=== PATIENT | male | born 1990 | race Caucasian/White ===

== ENCOUNTER 2021-01-13 02:35 | Emergency (ER) | payer MEDICAID ==
[2021-01-13] MEDS ORDERED: VANCOMYCIN INJ 3 GM in SODIUM CHLORIDE 0.9% 500 ML IV ONE (02:53)
--- NOTE | 2021-01-13 02:56 | ED Physician Documentation ---
History of Present Illness - Stated complaint Stated Complaint: L FINGER PX - Chief complaint Chief Complaint: Ext Problem - History obtained from History obtained from: Patient - Additonal information Additional information: Patient comes emergency department chief complaint of left index finger pain and swelling. He states that he was working on a car yesterday and had a couple of cuts on his index finger distally. He began to notice today that the finger was becoming increasingly swollen and painful and red. No drainage from the cuts. He states that over the course of this night, the pain has become excruciating, and that he has had to soak his finger in ice water just to try to numb it and make the pain manageable. No fevers or chills. He states the pain is confined to the distal half of his finger. He has not noticed any erythematous streaks traveling up his arm. No hand or arm pain. Patient has not really been moving the finger because it hurts too much. He is not a diabetic. No other complaints at this time. Review of Systems Ten Systems: 10 systems reviewed and negative Constitutional: reports: Reviewed and negative Eyes: reports: Reviewed and negative Ears: reports: Reviewed and negative Nose: reports: Reviewed and negative Throat: reports: Reviewed and negative Cardiac: reports: Reviewed and negative Respiratory: reports: Reviewed and negative GI: reports: Reviewed and negative : reports: Reviewed and negative Skin: reports: Other (Redness, left index finger.) Musculoskeletal: reports: Extremity pain, Extremity swelling Neurologic: reports: Reviewed and negative Psychiatric: reports: Reviewed and negative Endocrine: reports: Reviewed and negative Immunocompromised: reports: Reviewed and negative PD PAST MEDICAL HISTORY - Past Medical History Past Medical History: No - Past Surgical History Past Surgical History: No - Present Medications Home Medications: Ambulatory Orders Medication Instructions Recorded Confirmed HYDROcod/ACETAM 5/325 [Dalzell 5/325] 1 - 2 tablet PO Q6H PRN #14 tablet 01/13/21 - Allergies Allergies/Adverse Reactions: Allergies Allergy/AdvReac Type Severity Reaction Status Date / Time No Known Drug Allergies Allergy Verified 08/04/15 09:20 - Social History Does the pt smoke?: Yes Smoking Status: Current every day smoker Does the pt drink ETOH?: No Does the pt have substance abuse?: No - Immunizations Immunizations are current?: No PD ED PE NORMAL - Vitals Vital signs reviewed: Yes - General General: Alert and oriented X 3, Other (Patient is tearful and appears in pain.) - HEENT HEENT: Atraumatic, PERRL, EOMI, Moist mucous membranes - Neck Neck: Supple, no meningeal sign - Cardiac Cardiac: Strong equal pulses - Respiratory Respiratory: No respiratory distress - Derm Derm: Warm and dry, No rash, Other (Mild erythema noted distal half left index finger. No fluctuance or drainage. 3 Superficial lacerations/cracked skin less than 1 cm length each noted over fingertip.) - Extremities Extremities: No deformity, Other (Moderate edema left index finger. Patient refuses any movement secondary to pain. No tenderness along flexor tendon distribution. No swelling or tenderness of the hand. 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, No motor deficit, No sensory deficit, Normal speech, Other (Grossly normal) - Psych Psych: Normal mood, Normal affect Results - Vitals Vitals: Vital Signs - 24 hr 01/13/21 01/13/21 02:44 04:47 Temperature 37.1 C Heart Rate 90 81 Respiratory 18 17 Rate Blood Pressure 137/93 H 132/89 H O2 Saturation 96 98 Oxygen O2 Source Room air Procedures - Regional nerve block Nerve block site: Digital - note digit(s) (L middle finger) Right / left: Left Nerve block anesthesia: Marcaine 0.5% Nerve block aftercare: Excellent anesthesia, Patient tolerated well, No complications PD MEDICAL DECISION MAKING - ED course Complexity details: considered differential, d/w patient, d/w family ED course: The patient did not show signs of flexor tenosynovitis at this time, but I was concerned about the degree of pain the patient was in and the redness and swelling with induration of the finger. I could not feel an obvious purulent collection, but I did feel the patient should have a dose of IV antibiotics. IV vancomycin was ordered for the patient. Who was treated with this as well as IV Dilaudid and Toradol, which did improve his pain but did not completely resolve it, and patient was still in quite a bit of pain. I offer the patient digital block which she did readily accept, and it was done as above. I advised the patient that since admission here or at any other hospital is not an option, due to bed status, we will have him come back to the emergency department in the mid afternoon for recheck of his finger and possibly another dose of IV antibiotics. Patient is agreeable to this plan. Departure - Departure Disposition: 01 Home, Self Care Clinical Impression: Cellulitis of finger of left hand Condition: Stable Instructions: ED Infec Skin Cellulitis Prescriptions: HYDROcod/ACETAM 5/325 [Dalzell 5/325] 1 - 2 tablet PO Q6H PRN #14 tablet PRN Reason: Pain Comments: Please return in the mid to later afternoon for a recheck and further antibiotic dosing.
[2021-01-13] MEDS ORDERED: VANCOMYCIN 1 GM VIAL ONE ×2 (03:03→03:06)
[2021-01-13] MEDS ORDERED: KETOROLAC 30 MG/ML VIAL IVP STA (03:06)
[2021-01-13] MEDS ORDERED: HYDROmorphone 1 MG/ML CARPUJECT IVP STA ×2 (03:06→04:12)
[2021-01-13] MEDS ORDERED: BUPIVACAINE 0.5% PF 30 ML VIAL SUBQ ONE (04:20)
[2021-01-13] MEDS ORDERED: BUPIVACAINE 0.5% PF 10 ML VIAL ONE (04:31)
[2021-01-13 06:13] VITALS: BP 131/62
== END 2021-01-13 06:14 | disposition home or self-care (01) ==
LOC: ED 02:35
DX: S61.211A Laceration without foreign body of left index finger without damage to nail, initial encounter (principal); L03.012 Cellulitis of left finger; W45.8XXA Other foreign body or object entering through skin, initial encounter; Y93.89 Activity, other specified; F17.200 Nicotine dependence, unspecified, uncomplicated
CPT/HCPCS: 64450; 96365; 96366; 96375; 96376; 99283; 99284; J1170; J3370

== ENCOUNTER 2021-01-13 15:09 | Emergency (ER) | payer MEDICAID ==
[2021-01-13 15:17] VITALS: BP 129/69
== END 2021-01-13 15:40 | disposition left against medical advice (07) ==
LOC: ED 15:09
DX: Z53.21 Procedure and treatment not carried out due to patient leaving prior to being seen by health care provider (principal)

== ENCOUNTER 2021-07-31 05:51 | Emergency (ER) | payer MEDICAID ==
[2021-07-31 06:45] LABS: BASOPHILS % (AUTO) 0.4 %; EOSINOPHILS # (AUTO) 0.4 10^3/uL (0.0-0.7); EOSINOPHILS % (AUTO) 3.3 %; HCT - HEMATOCRIT 43.5 % (42.0-52.0); HGB - HEMOGLOBIN 14.9 g/dL (14.0-18.0); LYMPHOCYTES # (AUTO) 1.9 10^3/uL (1.5-3.5); LYMPHOCYTES % (AUTO) 17.9 %; MEAN CORPUSCULAR HEMOGLOBIN 28.7 pg (27.0-31.0); MEAN CORPUSCULAR HGB CONC 34.3 g/dL (32.0-36.0); MEAN CORPUSCULAR VOLUME 83.8 fL (80.0-94.0); MEAN PLATELET VOLUME 9.7 fL (7.4-11.4); MONOCYTES # (AUTO) 0.7 10^3/uL (0.0-1.0); NEUTROPHILS # (AUTO) 7.4 10^3/uL (1.5-6.6); PLT - PLATELET COUNT 269 10^3/uL (130-450); RED BLOOD COUNT 5.19 10^6/uL (4.70-6.10); RED CELL DISTRIBUTION WIDTH 13.2 % (12.0-15.0); WHITE BLOOD COUNT 10.5 x10^3/uL (4.8-10.8)
[2021-07-31 06:59] LABS: ALBUMIN 4.2 g/dL (3.2-5.5); ALBUMIN/GLOBULIN RATIO 1.2 (1.0-2.2); BILIRUBIN,TOTAL 0.5 mg/dL (0.2-1.0); CALCIUM 9.6 mg/dL (8.5-10.3); POTASSIUM 3.4 mmol/L (3.5-5.0); TOTAL PROTEIN 7.6 g/dL (6.7-8.2)
[2021-07-31] MEDS ORDERED: LORazepam 2 MG/ML VIAL IVP STA (07:14)
--- NOTE | 2021-07-31 07:16 | ED Physician Documentation ---
PD HPI CHEST PAIN - Stated complaint Stated Complaint: CHEST PX - Chief complaint Chief Complaint: Cardiac - History obtained from History obtained from: Patient - Additional information Additional information: -year-old male with past medical significant for methamphetamine abuse presenting to the emergency department with chest pain. Endorses for substernal and epigastric pain ongoing x1 hour. Reports used meth this morning immediately prior to the onset of pain. Denies previous episodes of pain. Denies chronic medical issues. States does not regularly follow-up with a doctor. He states h as been attempting to wean his methamphetamine use with minimal success. Denies fever, chills, shortness of breath, nausea, vomiting, diarrhea, constipation. Review of Systems Constitutional: denies: Fever Eyes: denies: Loss of vision Ears: denies: Loss of hearing Nose: denies: Rhinorrhea / runny nose Cardiac: reports: Chest pain / pressure Respiratory: denies: Dyspnea, Hemoptysis GI: denies: Abdominal Pain : denies: Dysuria Skin: denies: Rash PD PAST MEDICAL HISTORY - Past Medical History Past Medical History: Yes Psych: Other (Substance abuse) Other Past Medical History: Meth abuser - Past Surgical History Past Surgical History: No - Present Medications Home Medications: Ambulatory Orders Medication Instructions Recorded Confirmed No Known Home Medications 07/31/21 07/31/21 - Allergies Allergies/Adverse Reactions: Allergies Allergy/AdvReac Type Severity Reaction Status Date / Time No Known Drug Allergies Allergy Verified 07/31/21 06:10 - Social History Does the pt smoke?: Yes Smoking Status: Current every day smoker Does the pt drink ETOH?: No Does the pt have substance abuse?: Yes Substance Use and Type: Meth - Immunizations Immunizations are current?: No - POLST Patient has POLST: No PD ED PE NORMAL - Vitals Vital signs reviewed: Yes - General General: Alert and oriented X 3, Other (Patient sitting at edge of [facility], demonstrates anxious affect.) - HEENT HEENT: Atraumatic - Neck Neck: Supple, no meningeal sign - Cardiac Cardiac: RRR, No murmur, No gallop, Strong equal pulses - Respiratory Respiratory: No respiratory distress, Clear bilaterally - Abdomen Abdomen: Normal bowel sounds - Male Male : Deferred - Rectal Rectal: Deferred - Derm Derm: Normal color - Extremities Extremities: No deformity - Neuro Neuro: Alert and oriented X 3, 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, No motor deficit, Normal speech - Psych Psych: Other (Anxious affect) Results - Vitals Vitals: Vital Signs - 24 hr 07/31/21 07/31/21 07/31/21 06:02 06:43 08:33 Temperature 35.8 C L Heart Rate 100 57 L Respiratory 17 22 16 Rate Blood Pressure 135/83 H 169/55 H 126/101 H O2 Saturation 100 96 100 Oxygen O2 Source Room air - EKG (time done) 0550 Rate: Rate (enter#) (86) Rhythm: NSR [place]: Normal Intervals: Normal [place] QRS: Normal Ischemia: Normal ST segments Compare to prior EKG: Old EKG unavailable Computer interpretation: Agree with computer - Labs Labs: Laboratory Tests 07/31/21 07/31/21 07/31/21 06:40 06:40 06:40 WBC 10.5 RBC 5.19 Hgb 14.9 Hct 43.5 MCV 83.8 MCH 28.7 MCHC 34.3 RDW 13.2 Plt Count 269 MPV 9.7 Neut # (Auto) 7.4 H Lymph # (Auto) 1.9 [place] # (Auto) 0.7 Eos # (Auto) 0.4 Baso # (Auto) 0.0 Absolute Nucleated RBC 0.00 Nucleated RBC % 0.0 Sodium 136 Potassium 3.4 L Chloride 100 L Carbon Dioxide 21 Anion Gap 15.0 H BUN 14 Creatinine 1.0 Estimated GFR (MDRD) 87 L Glucose 149 H Calcium 9.6 Total Bilirubin 0.5 AST 44 H ALT 61 H Alkaline Phosphatase 66 Troponin I High Sens 11.2 Total Protein 7.6 Albumin 4.2 Globulin 3.4 Albumin/Globulin Ratio 1.2 Lipase 31 Nasal Adenovirus (PCR) Nasal B. parapertussis DNA (PCR) Nasal Coronavir 229E PCR Nasal Coronavir HKU1 PCR Nasal Coronavir NL63 PCR Nasal Coronavir OC43 PCR Nasal Enterovir/Rhinovir PCR Nasal Influenza B PCR Nasal Influenza A PCR Nasal Parainfluen 1 PCR Nasal Parainfluen 2 PCR Nasal Parainfluen 3 PCR Nasal Parainfluen 4 PCR Nasal RSV (PCR) Nasal B.pertussis DNA PCR Nasal C.pneumoniae (PCR) Ankit Human Metapneumo PCR Nasal M.pneumoniae (PCR) Nasal SARS-CoV-2 (PCR) 07/31/21 07/31/21 07:45 09:10 WBC RBC Hgb Hct MCV MCH MCHC RDW Plt Count MPV Neut # (Auto) Lymph # (Auto) [place] # (Auto) Eos # (Auto) Baso # (Auto) Absolute Nucleated RBC Nucleated RBC % Sodium Potassium Chloride Carbon Dioxide Anion Gap BUN Creatinine Estimated GFR (MDRD) Glucose Calcium Total Bilirubin AST ALT Alkaline Phosphatase Troponin I High Sens 8.4 Total Protein Albumin Globulin Albumin/Globulin Ratio Lipase Nasal Adenovirus (PCR) NOT DETECTED Nasal B. parapertussis DNA (PCR) NOT DETECTED Nasal Coronavir 229E PCR NOT DETECTED Nasal Coronavir HKU1 PCR NOT DETECTED Nasal Coronavir NL63 PCR NOT DETECTED Nasal Coronavir OC43 PCR NOT DETECTED Nasal Enterovir/Rhinovir PCR NOT DETECTED Nasal Influenza B PCR NOT DETECTED Nasal Influenza A PCR NOT DETECTED Nasal Parainfluen 1 PCR NOT DETECTED Nasal Parainfluen 2 PCR NOT DETECTED Nasal Parainfluen 3 PCR NOT DETECTED Nasal Parainfluen 4 PCR NOT DETECTED Nasal RSV (PCR) NOT DETECTED Nasal B.pertussis DNA PCR NOT DETECTED Nasal C.pneumoniae (PCR) NOT DETECTED Ankit Human Metapneumo PCR NOT DETECTED Nasal M.pneumoniae (PCR) NOT DETECTED Nasal SARS-CoV-2 (PCR) DETECTED A PD MEDICAL DECISION MAKING - ED course Complexity details: reviewed results, d/w patient ED course: 30-year-old male presenting to the emergency department with chest pain ongoing x1 hour in setting of methamphetamine abuse and use of methamphetamines earlier this morning. EKG is on above negative for indications of acute cardiac ischemia or dysrhythmia. Initial and repeat troponins negative. Chest x-ray did demonstrate some mild bibasilar lar consolidations concerning for viral pneumonia. I did obtain a Covid PCR which was positive. This information was communicated directly to the patient. He had an extraordinarily anxious affect on arrival to the emergency department and was given 1 mgAtivan for chemical calming. He was monitored carefully for several hours, reevaluated on multiple occasions and found to be resting comfortably and in no acute distress. He did ultimately wake up and inform me and the nursing staff that he wished to leave the emergency department. He was encouraged to seek treatment for his methamphetamine abuse. Otherwise clear return precautions and follow-up i nstructions given prior to discharge. Departure - Departure Disposition: 01 Home, Self Care Clinical Impression: Chest pain, Methamphetamine abuse, COVID-19 Instructions: ED Chest Pain Atypical Unkn Cause, ED Drug Abuse General Comments: Thank you for allowing us to care for you today at [facility]. Your EKG and initial blood work was very reassuring. You did decide to leave the emergency department before we completed repeat blood work however given that you are feeling better I think it is very unlikely that you are experiencing a life-threatening cardiac event. Please continue to work towards discontinuing your methamphetamine use, this substance is extraordinarily toxic to the body and will have extremely negative effect on your overall health and wellbeing if you continue to use it. If it anytime you have any new or worsening symptoms please not hesitate to return. Discharge Date/Time: 07/31/21 09:35
--- NOTE | 2021-07-31 08:00 | XRAY Report ---
PROCEDURE: Chest 1 View X-Ray INDICATIONS: CP TECHNIQUE: One view of the chest was acquired. COMPARISON: None FINDINGS: Surgical changes and devices: None. Lungs and pleura: No pleural effusions or pneumothorax. Trace bibasilar atelectasis and or infiltrat e Mediastinum: Mediastinal contours appear normal. Heart size is normal. Bones and chest wall: No suspicious bony lesions. Overlying soft tissues appear unremarkable. IMPRESSION: Trace bibasilar atelectasis and/or infiltrate greater on the left Note: Final report is concordant with preliminary report provided by [facility] Reviewed by: Kingston Moy MD on 07/31/2021 6:58 AM [place] Approved by: Kingston Moy MD on 07/31/2021 6:58 AM [facility] Station ID: [id number]
[2021-07-31 08:34] VITALS: BP 126/101
[2021-07-31 09:05] LABS: B. PARAPERTUSSIS- RESP PCR PAN NOT DETECTED; B. PERTUSSIS- RESP PCR PANEL NOT DETECTED; C. PNEUMONIAE- RESP PCR PANEL NOT DETECTED; CORONAVIRUS 229E-RESP PCR NOT DETECTED; CORONAVIRUS HKU1-RESP PCR NOT DETECTED; CORONAVIRUS NL63-RESP PCR NOT DETECTED; CORONAVIRUS OC43-RESP PCR NOT DETECTED; HUMAN METAPNEUMOVIRUS NOT DETECTED; INFLUENZA A- RESP PCR PANEL NOT DETECTED; INFLUENZA B - RESP PCR PANEL NOT DETECTED; M. PNEUMONIAE- RESP PCR PANEL NOT DETECTED; PARAINFLUENZA VIRUS 1 NOT DETECTED; PARAINFLUENZA VIRUS 2 NOT DETECTED; PARAINFLUENZA VIRUS 3 NOT DETECTED; PARAINFLUENZA VIRUS 4 NOT DETECTED; RHINOVIRUS/ENTEROVIRUS NOT DETECTED; RSV- RESP PCR PANEL NOT DETECTED; SARS-CoV-2 -RESP PCR PANEL DETECTED
== END 2021-07-31 09:35 | disposition home or self-care (01) ==
LOC: ED 05:51
DX: U07.1 COVID-19 (principal); F15.129 Other stimulant abuse with intoxication, unspecified; R07.9 Chest pain, unspecified; F17.200 Nicotine dependence, unspecified, uncomplicated
CPT/HCPCS: 0202U; 36415; 71045; 80053; 83690; 84484; 85025; 93005; 96374; 99283; 99284; J2060